=== PATIENT | male | born 1980 | race Caucasian/White ===

== ENCOUNTER 2016-11-14 11:04 | Emergency (ER) | payer SELFPAY ==
[~2016-11-14] VITALS: Ht 180.3 cm; Wt 89.9 kg
[2016-11-14] MEDS ORDERED: SODIUM CHLORIDE 0.9% 1,000 ML IV ONE (11:21)
[2016-11-14] MEDS ORDERED: DIPHENHYDRAMINE 50 MG/ML, 1ML IVPush ONE (11:30)
[2016-11-14] MEDS ORDERED: SODIUM CHLORIDE 0.9% 1,000ML IVBOLUS ONE (11:30)
[2016-11-14] MEDS ORDERED: METOCLOPRAMIDE 5 MG/ML, 2ML IVPush ONE (11:30)
[2016-11-14] MEDS ORDERED: DIPHENHYDRAMINE 50 MG/ML, 1ML ONE (11:51)
[2016-11-14] MEDS ORDERED: METOCLOPRAMIDE 5 MG/ML, 2ML ONE (11:51)
[2016-11-14 12:09] LABS: BLOOD UREA NITROGEN 14 mg/dL (7-18)
[2016-11-14] MEDS ORDERED: LORazepam 2 MG/ML, 1ML IVPush ONE (12:30)
[2016-11-14] MEDS ORDERED: LORazepam 2 MG/ML, 1ML ONE (12:38)
[2016-11-14 13:26] VITALS: BP 127/82
== END 2016-11-14 13:28 | disposition home or self-care (01) ==
LOC: ED 11:38
DX: R51 Headache (principal); E10.9 Type 1 diabetes mellitus without complications
CPT/HCPCS: 36415; 70450; 80048; 82040; 85025; 96361; 96374; 96375; 99285; J1200; J2060; J2765; J7030

== ENCOUNTER 2017-02-05 10:31 | Emergency (ER) | payer MEDICAID ==
[~2017-02-05] VITALS: Ht 180.3 cm; Wt 83.0 kg
[2017-02-05 11:28] LABS: HEMATOCRIT 47.7 % (39.2-51.8); HEMOGLOBIN 16.2 g/dL (13.7-18.0); WHITE BLOOD COUNT 7.3 x10^3/uL (3.4-10)
[2017-02-05] MEDS ORDERED: SODIUM CHLORIDE FLUSH 10ML SYR IVF ONE (11:30)
[2017-02-05] MEDS ORDERED: SODIUM CHLORIDE 0.9% 1,000ML IVBOLUS ONE (11:30)
[2017-02-05 11:38] LABS: ASPARTATE AMINO TRANSFERASE 19 U/L (15-37); BLOOD UREA NITROGEN 21 mg/dL (7-18)
[2017-02-05 12:28] LABS: IS PT STATUS REG ER OR PRE ER? YES
[2017-02-05] MEDS ORDERED: INSULIN DETEMIR 100 UNITS/ML, PEN SQ-INSULIN ONE (15:00)
[2017-02-05 15:10] VITALS: BP 125/85
== END 2017-02-05 15:12 | disposition home or self-care (01) ==
LOC: ED 11:58
DX: R07.89 Other chest pain (principal); E11.9 Type 2 diabetes mellitus without complications
CPT/HCPCS: 36415; 71010; 80053; 82962; 83690; 84484; 85025; 93005; 96360; 96361; 96372; 99285; J1815; J7030

== ENCOUNTER 2018-05-17 11:51 | Emergency (ER) | payer MEDICAID ==
[~2018-05-17] VITALS: Ht 170.2 cm; Wt 82.0 kg
[2018-05-17] MEDS ORDERED: MORPHINE SULFATE 4 MG/ML, 1ML IVPush PRN (12:30)
[2018-05-17] MEDS ORDERED: METOCLOPRAMIDE 5 MG/ML, 2ML ONE (12:35)
[2018-05-17] MEDS ORDERED: MORPHINE SULFATE 4 MG/ML, 1ML ONE (12:35)
[2018-05-17 12:37] LABS: BASOPHILS # (AUTO) 0.13 x10^3/uL (0-0.1); BASOPHILS % (AUTO) 1 % (0-1); EOSINOPHILS # (AUTO) 0.05 x10^3/uL (0-0.4); EOSINOPHILS % (AUTO) 0 % (1-7); LYMPHOCYTES # (AUTO) 1.83 x10^3/uL (1-3.4); LYMPHOCYTES % (AUTO) 15 % (22-44); MD NO; MEAN CORPUSCULAR HEMOGLOBIN 31.5 pg (27.5-34.5); MEAN CORPUSCULAR HGB CONC 34.9 g/dL (33.2-36.2); MEAN CORPUSCULAR VOLUME 90.3 fL (81-97); MEAN PLATELET VOLUME 8.1 fL (7.4-10.4); MONOCYTES # (AUTO) 0.45 x10^3/uL (0.2-0.8); MONOCYTES % (AUTO) 4 % (2-9); NEUTROPHILS # (AUTO) 10.07 x10^3/uL (1.8-6.8); NEUTROPHILS % (AUTO) 80 % (42-75); PLATELET COUNT 283 x10^3/uL (130-400); RED BLOOD COUNT 5.15 x10^6/uL (4.38-5.82); RED CELL DISTRIBUTION WIDTH 12.9 % (9.4-14.8)
[2018-05-17 12:41] LABS: PH, VENOUS 7.476 pH (7.320-7.420)
[2018-05-17 12:48] LABS: ALBUMIN 4.4 g/dL (3.4-5.0); ANION GAP 13 mmol/L (5-15); CALCIUM 9.1 mg/dL (8.5-10.1); CHLORIDE 100 mmol/L (98-107); CREATININE 1.46 mg/dL (0.7-1.3)
[2018-05-17 12:52] LABS: TROPONIN I < 0.015 ng/mL (0.000-0.045)
[2018-05-17] MEDS ORDERED: LORazepam 2 MG/ML, 1ML IVPush ONE (13:00)
[2018-05-17] MEDS ORDERED: METOCLOPRAMIDE 5 MG/ML, 2ML IVPush ONE (13:00)
[2018-05-17 13:01] LABS: ACETONE, SERUM Moderate(40mg/dL) mg/dL (Negative)
--- NOTE | 2018-05-17 13:01 | NUR ---
pt upright on gurney with eyes closed, calmer without wretching after meds, responds approp to staff, comfort measures provided, visitors at BS, call light within reach.
[2018-05-17] MEDS ORDERED: INSULIN REGULAR 100 UNITS/ML, 3ML VIAL ONE (13:23)
[2018-05-17] MEDS ORDERED: SODIUM CHLORIDE 0.9% 1,000ML IVBOLUS ONE ×2 (13:30)
[2018-05-17] MEDS ORDERED: INSU100V5 SQ-INSULIN (13:33)
[2018-05-17] MEDS ORDERED: INSU100V8 SQ (13:33)
--- NOTE | 2018-05-17 13:55 | NUR ---
pt remains upright on gurney awake & more comfortable, responds approp to staff, comfort measures provided, visitors at BS, call light within reach.
[2018-05-17] MEDS ORDERED: SODIUM CHLORIDE FLUSH 10ML SYR IVF ONE (14:00)
[2018-05-17 14:17] LABS: MICROSCOPIC NOT IND
[2018-05-17 14:25] LABS: CULTURE INDICATED? NO
[2018-05-17 14:46] LABS: ANION GAP 9 mmol/L (5-15); CALCIUM 8.5 mg/dL (8.5-10.1); CHLORIDE 106 mmol/L (98-107); CREATININE 1.24 mg/dL (0.7-1.3)
[2018-05-17 15:03] VITALS: BP 152/94
--- NOTE | 2018-05-17 15:04 | NUR ---
pt upright on gurney awake & comfortable, responds approp to staff, NAD, comfort measures provided, visitors at BS, call light within reach.
--- NOTE | 2018-05-17 15:20 | NUR ---
Patient given discharge instructions and they have confirmed that they understand the instructions. Patient ambulatory with steady gait.
[2018-05-17] MEDS ORDERED: INSULIN REGULAR 100 UNITS/ML, 3ML VIAL SQ-INSULIN SCH (16:00)
== END 2018-05-17 15:29 | disposition home or self-care (01) ==
LOC: ED 15:21
DX: E86.0 Dehydration (principal); E11.65 Type 2 diabetes mellitus with hyperglycemia; F41.1 Generalized anxiety disorder; R07.9 Chest pain, unspecified
CPT/HCPCS: 36415; 71045; 80048; 81003; 82010; 82040; 82803; 82962; 83880; 84484; 85025; 93005; 96361; 96372; 96374; 96375; 99284; J2765; J7030

== ENCOUNTER 2019-04-19 06:55 | Inpatient (IN) | payer MEDICAID ==
[~2019-04-19] VITALS: Ht 177.8 cm; Wt 82.3 kg
[~2019-04-19 06:55] MED LIST: INSU100V5 SQ-INSULIN; INSU100V8 SQ
[2019-04-19] MEDS ORDERED: PROMETHAZINE 25 MG/ML, 1ML ONE (07:18)
[2019-04-19] MEDS ORDERED: PROMETHAZINE 25 MG/ML, 1ML IM ONE (07:30)
[2019-04-19 08:00] LABS: MEAN CORPUSCULAR HEMOGLOBIN 30.9 pg (27.5-34.5); MEAN CORPUSCULAR HGB CONC 33.7 g/dL (33.2-36.2); MEAN CORPUSCULAR VOLUME 91.6 fL (81-97); MEAN PLATELET VOLUME 8.6 fL (7.4-10.4); PLATELET COUNT 274 x10^3/uL (130-400); RED BLOOD COUNT 5.44 x10^6/uL (4.38-5.82); RED CELL DISTRIBUTION WIDTH 12.5 % (9.4-14.8)
[2019-04-19] MEDS ORDERED: SODIUM CHLORIDE 0.9% 1,000ML IVBOLUS ONE ×2 (08:00→08:30)
[2019-04-19 08:01] LABS: PH, VENOUS 7.433 pH (7.320-7.420)
[2019-04-19 08:03] LABS: FIO2 ROOM AIR %
--- NOTE | 2019-04-19 08:11 | NUR ---
PATIENT RESTING IN BED, AWARE OF POC. CALL LIGHT IN REACH
[2019-04-19 08:13] LABS: ALBUMIN 4.4 g/dL (3.4-5.0); ANION GAP 20 mmol/L (5-15); CALCIUM 9.3 mg/dL (8.5-10.1); CHLORIDE 99 mmol/L (98-107)
[2019-04-19 08:15] LABS: CULTURE INDICATED? NO; MICROSCOPIC NOT IND
[2019-04-19 08:18] LABS: BASOPHILS # (AUTO) 0.05 x10^3/uL (0-0.1); BASOPHILS % (AUTO) 0 % (0-1); EOSINOPHILS # (AUTO) 0.02 x10^3/uL (0-0.4); EOSINOPHILS % (AUTO) 0 % (1-7); LYMPHOCYTES # (AUTO) 1.37 x10^3/uL (1-3.4); LYMPHOCYTES % (AUTO) 7 % (22-44); MD SCAN; MONOCYTES # (AUTO) 0.45 x10^3/uL (0.2-0.8); MONOCYTES % (AUTO) 2 % (2-9); NEUTROPHILS # (AUTO) 17.59 x10^3/uL (1.8-6.8); NEUTROPHILS % (AUTO) 90 % (42-75)
--- NOTE | 2019-04-19 08:59 | NUR ---
FLUIDS INFUSING, N/V CONTROLLED. CALL LIGHT IN REACH.
[2019-04-19] MEDS ORDERED: ONDANSETRON 2MG/ML, 2ML ONE (09:21)
[2019-04-19 09:22] LABS: ACETONE, SERUM Moderate(40mg/dL) mg/dL (Negative)
[2019-04-19] MEDS ORDERED: ONDANSETRON 2MG/ML, 2ML IVPush ONE (09:30)
--- NOTE | 2019-04-19 10:15 | NUR ---
ASSISTED PATIENT STEADY AMBULATION TO BATHROOM
[2019-04-19] MEDS ORDERED: SODIUM CHLORIDE 0.9% 1,000 ML IV ONE (10:27)
[2019-04-19] MEDS ORDERED: SODIUM CHLORIDE FLUSH 10ML SYR IVF PRN (10:30)
[2019-04-19] MEDS ORDERED: INSULIN REGULAR 100 UNITS/ML, 3ML VIAL SQ-INSULIN ONE (10:30)
[2019-04-19 10:40] VITALS: BP 151/85
[2019-04-19] MEDS ORDERED: ONDANSETRON ODT 4 MG PO PRN (11:00)
[2019-04-19] MEDS: ENOXAPARIN 40 MG/0.4 ML SQ SCH (11:00)
[2019-04-19] MEDS ORDERED: ONDANSETRON 2MG/ML, 2ML IVPush PRN (11:00)
[2019-04-19] MEDS ORDERED: ACETAMINOPHEN 325 MG TABLET PO PRN (11:00)
[2019-04-19] MEDS: SODIUM CHLORIDE 0.9% 1,000 ML IV SCH ×2 (11:22→16:11)
[2019-04-19] MEDS: INSULIN LISPRO 100 UNITS/ML, PEN SQ-INSULIN SCH ×3 (11:41→20:48)
[2019-04-19] MEDS: INSULIN GLARGINE 100 UNITS/ML, PEN SQ-INSULIN SCH ×2 (11:42→20:47)
[2019-04-19 11:48] VITALS: BP 151/85
[2019-04-19 12:24] LABS: ANION GAP 17 mmol/L (5-15); CALCIUM 8.4 mg/dL (8.5-10.1); CHLORIDE 103 mmol/L (98-107); CREATININE 1.53 mg/dL (0.7-1.3)
[2019-04-19 13:20] VITALS: BP 118/73
[2019-04-19 16:44] LABS: ANION GAP 11 mmol/L (5-15); CALCIUM 8.3 mg/dL (8.5-10.1); CHLORIDE 109 mmol/L (98-107); CREATININE 1.27 mg/dL (0.7-1.3)
[2019-04-19 18:42] VITALS: BP 120/68
[2019-04-19 20:10] LABS: ANION GAP 9 mmol/L (5-15); CHLORIDE 111 mmol/L (98-107); CREATININE 1.12 mg/dL (0.7-1.3)
[2019-04-19] MEDS: D5%-0.45% NACL 1,000 ML IV SCH (20:53)
[2019-04-20 00:01] VITALS: BP 123/69
[2019-04-20] MEDS: INSULIN LISPRO 100 UNITS/ML, PEN SQ-INSULIN SCH ×4 (00:45→11:00)
[2019-04-20 01:03] LABS: ANION GAP 7 mmol/L (5-15); CALCIUM 7.8 mg/dL (8.5-10.1); CHLORIDE 111 mmol/L (98-107); CREATININE 1.14 mg/dL (0.7-1.3)
[2019-04-20] MEDS: D5%-0.45% NACL 1,000 ML IV SCH (01:51)
[2019-04-20 04:34] LABS: CHLORIDE 109 mmol/L (98-107)
[2019-04-20 04:38] LABS: MEAN CORPUSCULAR HEMOGLOBIN 31.5 pg (27.5-34.5); MEAN CORPUSCULAR HGB CONC 33.7 g/dL (33.2-36.2); MEAN CORPUSCULAR VOLUME 93.5 fL (81-97); MEAN PLATELET VOLUME 8.2 fL (7.4-10.4); PLATELET COUNT 270 x10^3/uL (130-400); RED BLOOD COUNT 4.68 x10^6/uL (4.38-5.82); RED CELL DISTRIBUTION WIDTH 12.5 % (9.4-14.8)
[2019-04-20 04:40] LABS: ANION GAP 3 mmol/L (5-15); CALCIUM 7.5 mg/dL (8.5-10.1); CREATININE 1.25 mg/dL (0.7-1.3)
[2019-04-20 05:44] LABS: BASOPHILS # (AUTO) 0.04 x10^3/uL (0-0.1); BASOPHILS % (AUTO) 0 % (0-1); EOSINOPHILS # (AUTO) 0.17 x10^3/uL (0-0.4); EOSINOPHILS % (AUTO) 1 % (1-7); LYMPHOCYTES # (AUTO) 1.69 x10^3/uL (1-3.4); LYMPHOCYTES % (AUTO) 9 % (22-44); MD SCAN; MONOCYTES # (AUTO) 1.28 x10^3/uL (0.2-0.8); MONOCYTES % (AUTO) 7 % (2-9); NEUTROPHILS % (AUTO) 83 % (42-75)
[2019-04-20 07:10] VITALS: BP 109/72
[2019-04-20 08:48] LABS: ANION GAP 3 mmol/L (5-15); CHLORIDE 110 mmol/L (98-107); CREATININE 1.28 mg/dL (0.7-1.3)
[2019-04-20] MEDS: ENOXAPARIN 40 MG/0.4 ML SQ SCH (11:00)
[2019-04-20] MEDS ORDERED: INSU100V34 SQ (12:57)
[2019-04-20] MEDS ORDERED: INSU100I34 SQ (12:57)
== END 2019-04-20 14:33 | disposition home or self-care (01) | DRG 638 ==
LOC: ED 08:09 → EDIP 10:27 → 3N 10:58 → DCLOUNGE 04-20 14:31
PROVIDERS: ADMIT Family Medicine; ATTEND Family Medicine
DX: E10.10 Type 1 diabetes mellitus with ketoacidosis without coma (principal); N17.9 Acute kidney failure, unspecified; R65.10 Systemic inflammatory response syndrome (SIRS) of non-infectious origin without acute organ dysfunction; E86.0 Dehydration; F41.1 Generalized anxiety disorder; R07.9 Chest pain, unspecified; Z79.4 Long term (current) use of insulin; Z91.14 Patient's other noncompliance with medication regimen
CPT/HCPCS: 71046; 80048; 81003; 82010; 82040; 82803; 82962; 83036; 83930; 85025; 93005; 96372; 99291; G0378; J2405; J2550; J1815; J7030